=== PATIENT | female | born 1980 | race Caucasian/White ===

== ENCOUNTER 2017-01-20 12:09 | Emergency (ER) | payer BC ==
[~2017-01-20] VITALS: Ht 172.7 cm; Wt 64.6 kg
[2017-01-20 12:13] VITALS: TEMP 36.9; Ht 172.7 cm; Wt 64.6 kg
[2017-01-20] MEDS ORDERED: ONDANSETRON INJ 2 MG/ML 2 ML VIAL IV STA ×2 (12:42→16:53)
[2017-01-20 12:49] LABS: URINE APPEARANCE CLEAR (CLEAR); URINE BILIRUBIN NEG (NEG); URINE COLOR YELLOW; URINE NITRITE NEG (NEG); URINE PH 6.5 (4.5-7.5); URINE SPECIFIC GRAVITY 1.012 (1.000-1.030); UROBILINOGEN NEG (NEG); ZZUR CULT IF INDIC CLEAN CATCH NO
[2017-01-20 12:55] LABS: MANUAL MICROSCOPIC REQUIRED? NO; REVIEW REQ? NO
[2017-01-20 12:56] LABS: BASO % 0.2 %; BASO ABS # 0.01 K/uL (0-0.2); COMPLETE YES; EOS % 0.7 %; IG% 0.2 %; LYMPH % 25.8 %; LYMPH ABS # 1.43 K/uL (1.2-3.4); MEAN CELL VOLUME 94.8 fL (80-100); MEAN CORPUSCULAR HEMOGLOBIN 31.3 pg (25-34); MEAN PLATELET VOLUME 10.1 fL (7.4-10.4); MONO % 13.9 %; NEUT % 59.2 %; PLATELET COUNT 277 K/uL (130-400); RED BLOOD COUNT 4.64 M/uL (4.2-5.4); WHITE BLOOD COUNT 5.55 K/uL (4.8-10.8)
[2017-01-20] MEDS ORDERED: OPTIRAY 320 IV PRN (13:00)
[2017-01-20 13:04] LABS: BUN/CREATININE RATIO 15.8 (10-20); CALCIUM 9.3 mg/dl (8.5-10.1); CREATININE 1.02 mg/dl (0.60-1.20); POTASSIUM 3.9 mmol/L (3.5-5.1)
[2017-01-20 13:07] LABS: ALB/GLOB RATIO 1.1 (0.9-2)
[2017-01-20] MEDS ORDERED: METH5TAB4 PO (13:12)
[2017-01-20] MEDS ORDERED: TRIA1SPR4 (13:12)
--- NOTE | 2017-01-20 16:57 | DIAGNOSTIC IMAGING REPORT ---
ABDOMEN AND PELVIS CT WITH IV AND ORAL CONTRAST CT DOSE: 343.94 mGycm HISTORY: Acute right lower quadrant abdominal pain eval for appe TECHNIQUE: Multiaxial CT images of the abdomen and pelvis were performed following the use of intravenous and oral contrast. A dose lowering technique was utilized adhering to the principles of ALARA. COMPARISON STUDY: None. FINDINGS: Lung bases are generally clear. No pneumoperitoneum. Imaged inferior cardiac chambers are unremarkable. The liver, pancreas, gallbladder and adrenal glands are within normal limits. Coarse calcification of the superior spleen is noted is nonspecific. Spleen is otherwise unremarkable. Fatty attenuating 5 x 4 mm circumscribed lesion of the interpolar right kidney suggests angiomyolipoma. Kidneys are otherwise within normal limits. Ureters and urinary bladder are unremarkable. Peripherally enhancing cystic structure of the left adnexum is seen, 1.7 x 1.4 cm suggesting involuting follicle. Uterus and right adnexum are unremarkable. Abdominal aorta is normal in both course and caliber. Nonspecific mildly prominent periaortic lymph nodes are seen measuring up to 8 mm, likely physiologic. There is no bowel obstruction or focal bowel wall thickening identified. The appendix appears normal within the right lower quadrant. No right lower quadrant inflammatory changes. Soft tissues are unremarkable. Bones appear intact. Mild endplate spurring of the lower lumbar spine. IMPRESSION: 1. No acute intra-abdominal or intrapelvic abnormality identified, specifically no evidence of acute appendicitis. 2. 1.7 cm peripherally enhancing cystic structure of the left adnexum suggests involuting follicle. 3. 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 Electronically signed by: Tien Salinas M.D. 01/20/2017 4:55 PM Dictated Date/Time: 01/20/2017 4:50 PM
[2017-01-20 17:20] VITALS: BP 120/76; PULSE 73; O2SAT 96
--- NOTE | 2017-01-20 17:37 | EMERGENCY ROOM VISIT NOTE ---
History Report prepared by Rafaela: Nikki Brooks Under the Supervision of: Dr. Matt Cueva M.D. First contact with patient: 12:35 Chief Complaint: ABDOMINAL PAIN Stated Complaint: LOWER ABD. PAIN History of Present Illness The patient is a 36 year old female who presents to the Emergency Room with complaints of constant right sided abdominal pain beginning yesterday afternoon. She states that her pain was sharp throughout the day yesterday. Today it has improved slightly and she describes her current pain as a dull ache. She rates her current pain as a 3/10 in severity. Her pain is worse when she is up, walking around and it improves when she lays down. The patient has had nausea and a low-grade temperature of 99.7. She denies vomiting, diarrhea, urinary symptoms. and abnormal vaginal bleeding or discharge. She has had a cervical ablation in the past but denies any other previous abdominal surgeries. She has been before. Source of History: patient Onset: yesterday afternoon Position: abdomen Symptom Intensity: 3/10 Quality: ache, dull Timing: constant Modifying Factors (Worsening): other (walking around) Modifying Factors (Relieving): rest (laying down) Associated Symptoms: + fevers, + nausea, No vomiting, No diarrhea, No urinary symptoms Note: Pt denies abnormal vaginal bleeding or discharge. Review of Systems See HPI for pertinent positives & negatives. A total of 10 systems reviewed and were otherwise negative. Past Medical & Surgical Surgical Problems: (1) History of prior ablation treatment Family History Cancer Diabetes mellitus FHx: gallbladder disease Heart disease Hypertension Kidney disease Kidney stones Social History Smoking Status: Never Smoker Smokeless Tobacco Use: No Alcohol Use: occasionally Drug Use: none Marital Status: in relationship Housing Status: lives with significant other Occupation Status: employed Current/Historical Medications Scheduled Methylphenidate Hcl (Ritalin), 1 TAB PO TID Miscellaneous Medications Triamcinolone Acetonide (Nasal (Nasacort Allergy 24Hr) Allergies Coded Allergies: Ketoconazole (Verified Allergy, Unknown, HIVES, 01/20/17) Physical Exam Vital Signs Date Time Temp Pulse Resp B/P (MAP) Pulse Ox O2 Delivery O2 Flow Rate FiO2 01/20/17 17:00 73 16 120/76 96 Room Air 01/20/17 15:02 88 16 121/88 98 Room Air 01/20/17 13:00 78 20 115/71 99 Room Air 01/20/17 12:13 36.9 71 18 132/87 99 Room Air Physical Exam Constitutional: Vital signs reviewed. Eyes: Pupils are equal round reactive to light. Conjunctiva are noninjected. ENT: Pharynx is clear without erythema or exudate. Mucous membranes are moist. Neck supple without meningeal signs. Respiratory: Clear to auscultation bilaterally. Breath sounds are equal bilaterally. Cardiovascular: Regular rate and rhythm. No rubs or gallops. GI: Soft, nondistended, RLQ and RUQ tenderness, no Herrera's sign, no CVA tenderness, no guarding. Bowel sounds are present. Musculoskeletal: No peripheral edema. No lower extremity tenderness. Integumentary: No cyanosis. Neurological: The patient is awake and alert. No focal deficits. Psychiatric: Normal affect. Medical Decision & Procedures ER Provider Diagnostic Interpretation: Radiology results as stated below per my review and the radiologist's interpretation: ABDOMEN AND PELVIS CT WITH IV AND ORAL CONTRAST CT DOSE: 343.94 mGycm HISTORY: Acute right lower quadrant abdominal pain eval for appe TECHNIQUE: Multiaxial CT images of the abdomen and pelvis were performed following the use of intravenous and oral contrast. A dose lowering technique was utilized adhering to the principles of ALARA. COMPARISON STUDY: None. FINDINGS: Lung bases are generally clear. No pneumoperitoneum. Imaged inferior cardiac chambers are unremarkable. The liver, pancreas, gallbladder and adrenal glands are within normal limits. Coarse calcification of the superior spleen is noted is nonspecific. Spleen is otherwise unremarkable. Fatty attenuating 5 x 4 mm circumscribed lesion of the interpolar right kidney suggests angiomyolipoma. Kidneys are otherwise within normal limits. Ureters and urinary bladder are unremarkable. Peripherally enhancing cystic structure of the left adnexum is seen, 1.7 x 1.4 cm suggesting involuting follicle. Uterus and right adnexum are unremarkable. Abdominal aorta is normal in both course and caliber. Nonspecific mildly prominent periaortic lymph nodes are seen measuring up to 8 mm, likely physiologic. There is no bowel obstruction or focal bowel wall thickening identified. The appendix appears normal within the right lower quadrant. No right lower quadrant inflammatory changes. Soft tissues are unremarkable. Bones appear intact. Mild endplate spurring of the lower lumbar spine. IMPRESSION: 1. No acute intra-abdominal or intrapelvic abnormality identified, specifically no evidence of acute appendicitis. 2. 1.7 cm peripherally enhancing cystic structure of the left adnexum suggests involuting follicle. 3. 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 Electronically signed by: Tien Salinas M.D. 01/20/2017 4:55 PM Dictated Date/Time: 01/20/2017 4:50 PM Laboratory Results 01/20/17 12:30 Red Blood Count 4.64, Mean Corpuscular Volume 94.8, Mean Corpuscular Hemoglobin 31.3, Mean Corpuscular Hemoglobin Concent 33.0, Mean Platelet Volume 10.1, Neutrophils (%) (Auto) 59.2, Lymphocytes (%) (Auto) 25.8, Monocytes (%) (Auto) 13.9, Eosinophils (%) (Auto) 0.7, Basophils (%) (Auto) 0.2, Neutrophils # (Auto ) 3.29, Lymphocytes # (Auto) 1.43, Monocytes # (Auto) 0.77, Eosinophils # (Auto ) 0.04, Basophils # (Auto) 0.01 01/20/17 12:30 Test 01/20/17 12:30 White Blood Count 5.55 K/uL (4.8-10.8) Red Blood Count 4.64 M/uL (4.2-5.4) Hemoglobin 14.5 g/dL (12.0-16.0) Hematocrit 44.0 % (37-47) Mean Corpuscular Volume 94.8 fL (80-100) Mean Corpuscular Hemoglobin 31.3 pg (25-34) Mean Corpuscular Hemoglobin Concent 33.0 g/dl (32-36) Platelet Count 277 K/uL (130-400) Mean Platelet Volume 10.1 fL (7.4-10.4) Neutrophils (%) (Auto) 59.2 % Lymphocytes (%) (Auto) 25.8 % Monocytes (%) (Auto) 13.9 % Eosinophils (%) (Auto) 0.7 % Basophils (%) (Auto) 0.2 % Neutrophils # (Auto) 3.29 K/uL (1.4-6.5) Lymphocytes # (Auto) 1.43 K/uL (1.2-3.4) Monocytes # (Auto) 0.77 K/uL (0.11-0.59) Eosinophils # (Auto) 0.04 K/uL (0-0.5) Basophils # (Auto) 0.01 K/uL (0-0.2) RDW Standard Deviation 41.9 fL (36.4-46.3) RDW Coefficient of Variation 12.2 % (11.5-14.5) Immature Granulocyte % (Auto) 0.2 % Immature Granulocyte # (Auto) 0.01 K/uL (0.00-0.02) Urine Color YELLOW Urine Appearance CLEAR (CLEAR) Urine pH 6.5 (4.5-7.5) Urine Specific [place] 1.012 (1.000-1.030) Urine Protein NEG (NEG) Urine Glucose (UA) NEG (NEG) Urine Ketones NEG (NEG) Urine Occult Blood NEG (NEG) Urine Nitrite NEG (NEG) Urine Bilirubin NEG (NEG) Urine Urobilinogen NEG (NEG) Urine Leukocyte Esterase NEG (NEG) Urine Test NEG (NEG) Anion Gap 5.0 mmol/L (3-11) Est Creatinine Clear Calc Drug Dose 76.9 ml/min Estimated GFR () 82.0 Estimated GFR (Non- 70.7 BUN/Creatinine Ratio 15.8 (10-20) Calcium Level 9.3 mg/dl (8.5-10.1) Total Bilirubin 0.4 mg/dl (0.2-1) Aspartate Amino Transf (AST/SGOT) 12 U/L (15-37) Alanine Aminotransferase (ALT/SGPT) 23 U/L (12-78) Alkaline Phosphatase 80 U/L (45-117) Total Protein 8.7 gm/dl (6.4-8.2) Albumin 4.6 gm/dl (3.4-5.0) Globulin 4.1 gm/dl (2.5-4.0) Albumin/Globulin Ratio 1.1 (0.9-2) Lipase 169 U/L (73-393) Laboratory results as reviewed by me. Medications Administered Medications (Trade) Dose Ordered Sig/Lorraine Route Start Time Stop Time Status Last Admin Dose Admin Ondansetron HCl (Zofran Inj) 4 mg NOW STAT IV 01/20/17 12:42 01/20/17 12:43 DC 01/20/17 13:18 4 MG Ondansetron HCl (Zofran Inj) 4 mg NOW STAT IV 01/20/17 16:53 01/20/17 16:54 DC 01/20/17 17:00 4 MG ED Course 1235: The patient was evaluated in room C6. A complete history and physical exam was performed. 1242: Zofran 4 mg IV 1553: I reassessed the patient at this time. She went to CT but never received the oral contrast so they sent her back. She will go for CT at 1600 1653: Zofran 4 mg IV 1710: I reassessed the patient at this time. She is feeling better and resting comfortably. I discussed the results and treatment plan with the patient. I answered all pertaining questions that she had. She expressed understanding and verbalized agreement. The patient will be discharged home. Medical Decision This is a 36-year-old female presents with right-sided abdominal pain. Differential diagnosis includes acute appendicitis, ectopic , cholelithiasis, pancreatitis, inflammatory bowel disease, irritable bowel syndrome, ovarian cyst. I did perform a limited focused review of portions of the patient's old chart on the electronic medical record. The patient has had no prior visits to this hospital. I did evaluate the patient as noted above. The patient is presenting with right -sided abdominal pain since yesterday. She states it is improved since it started. She does not wish to have any pain medication. She is tender over the right upper and lower abdomen. IV access was established. I did treat her with Zofran IV.. I did order and personally review the patient's urinalysis as described above. I did order and review the patient's blood work as noted in the electronic medical record. Her white blood cell count is not elevated. I did order a CT of the abdomen and pelvis. I did review the images myself as well as the radiology report as described above. There is no evidence of acute intra-abdominal process. She does have some incidental findings which I discussed with her. I did discuss the test results with the patient and her mother. She was advised follow closely with her doctor. She was discharged in good condition. Medication Reconcilliation Current Medication List: was personally reviewed by me Blood Pressure Screening Patient's blood pressure: Elevated blood pressure Blood pressure disposition: Referred to PCP Impression Primary Impression: Right sided abdominal pain Scribe Attestation The scribe's documentation has been prepared under my direct and personally reviewed by me in its entirety. I confirm that the note above accurately reflects all work, treatment, procedures, and medical decision making performed by me. Departure Information Dispostion Home / Self-Care Referrals Benny Mckeon M.D. (PCP) Forms Call Back Authorization, HOME CARE DOCUMENTATION FORM, IMPORTANT VISIT INFORMATION Patient Instructions ED Abdominal Pain Unkn Cause, My [facility] Additional Instructions You have been examined and treated today on an emergency basis only. This is not a substitute for, or an effort to provide, complete comprehensive medical care. It is impossible to recognize and treat all injuries or illnesses in a single emergency department visit. It is therefore important that you follow up closely with your physician. Call as soon as possible for an appointment. Return for worsening symptoms or if you develop fever, vomiting, or any other concerning symptoms. Talk to your doctor about your incidental CT findings.
== END 2017-01-20 17:21 | disposition home or self-care (01) ==
LOC: C.EDB 12:11 → C.EDC 17:21
DX: R10.31 Right lower quadrant pain (principal); R10.11 Right upper quadrant pain; Z83.3 Family history of diabetes mellitus; Z82.49 Family history of ischemic heart disease and other diseases of the circulatory system